=== PATIENT | female | born 1955 | race Caucasian/White ===

== ENCOUNTER 2018-01-25 07:02 | Emergency (ER) | payer OTHER ==
[~2018-01-25] VITALS: Ht 154.9 cm; Wt 68.0 kg
[2018-01-25] MEDS ORDERED: DEPRESSION (07:34)
[2018-01-25] MEDS ORDERED: ERYTHROMYCIN E3.5 G3 OPHTHALMIC (07:42)
[2018-01-25 08:39] VITALS: BP 130/68
== END 2018-01-25 08:40 | disposition home or self-care (01) ==
LOC: ER 07:02
DX: T59.4X4A Toxic effect of chlorine gas, undetermined, initial encounter (principal); H10.212 Acute toxic conjunctivitis, left eye; S05.02XA Injury of conjunctiva and corneal abrasion without foreign body, left eye, initial encounter; X58.XXXA Exposure to other specified factors, initial encounter; Y92.89 Other specified places as the place of occurrence of the external cause; Y93.89 Activity, other specified; Y99.8 Other external cause status